=== PATIENT | male | born 1995 | race Caucasian/White ===

== ENCOUNTER 2020-06-15 22:37 | Emergency (ER) | payer OTHER ==
[~2020-06-15] VITALS: Ht 182.9 cm; Wt 59.0 kg
[2020-06-15 23:01] LABS: URINE BILIRUBIN NEGATIVE (Negative); URINE BLOOD NEGATIVE (Negative); URINE CLARITY CLEAR; URINE COLOR YELLOW; URINE GLUCOSE-RANDOM NEGATIVE (Negative); URINE KETONES NEGATIVE (Negative); URINE LEUKOCYTES-REFLEX NEGATIVE (Negative); URINE NITRITE-REFLEX NEGATIVE (Negative); URINE PROTEIN NEGATIVE (Negative); URINE SPECIFIC GRAVITY 1.025 (1.005-1.030)
[2020-06-16 00:13] VITALS: BP 120/76
== END 2020-06-16 00:13 | disposition home or self-care (01) ==
LOC: M.ERS 22:37
PROVIDERS: Emergency Medicine
DX: R36.9 Urethral discharge, unspecified (principal)

== ENCOUNTER 2020-06-25 02:27 | Emergency (ER) | payer OTHER ==
[~2020-06-25] VITALS: Ht 190.5 cm; Wt 59.0 kg
[2020-06-25 02:35] VITALS: BP 130/87
[2020-06-25] MEDS ORDERED: ZOFRAN ODT4 MG SUBLING (03:04)
[2020-06-25] MEDS ORDERED: AZITHROMYCIN 2250 MG PO (03:04)
[2020-06-25] MEDS ORDERED: SUPRAX400 M1 PO (03:04)
== END 2020-06-25 03:22 | disposition home or self-care (01) ==
LOC: M.ERS 02:27
DX: N48.89 Other specified disorders of penis (principal)